=== PATIENT | female | born 1990 | race Caucasian/White ===

== ENCOUNTER 2017-08-29 07:15 | Emergency (ER) | payer OTHER ==
[~2017-08-29] VITALS: Ht 172.7 cm; Wt 96.7 kg
[2017-08-29 08:50] LABS: HEMATOCRIT 40.7 % (36.0-46.0); HEMOGLOBIN 14.3 G/DL (11.9-15.5); MCH 31.4 PG (29.0-34.0); MCHC 35.1 G/DL (30.0-36.0); MCV 89.3 FL (83-99); PLATELET COUNT 232 K/uL (156-360); RBC DIS.WIDTH-CV 11.8 % (11.8-14.6); RBC DIS.WIDTH-SD 38.4 % (39-53); RED BLOOD COUNT 4.56 M/uL (3.80-5.20); WHITE BLOOD COUNT 14.1 K/uL (4.1-10.2)
[2017-08-29 08:59] LABS: ALBUMIN 4.7 g/dL (3.2-4.8); CHLORIDE 107 mEq/L (99-109); POTASSIUM 3.6 mEq/L (3.7-5.4); SODIUM 143 mEq/L (136-147)
[2017-08-29 09:02] LABS: GLUCOSE 107 mg/dL (70-99); TOTAL PROTEIN 7.6 g/dL (6.4-8.3)
[2017-08-29 09:04] LABS: TOTAL BILIRUBIN 0.7 mg/dL (0.0-1.0)
[2017-08-29 09:05] LABS: ALKALINE PHOSPHATASE 73 IU/L (3-129); CREATININE 0.7 mg/dL (0.6-1.3); GFR ESTIMATE (CALCULATED) > 59 mL/min/
[2017-08-29 09:06] LABS: UREA NITROGEN (BUN) 9 mg/dL (9-23)
[2017-08-29 09:07] LABS: AST (GOT) 17 IU/L (2-34)
[2017-08-29 09:08] LABS: ALT (GPT) 15 IU/L (3-49)
[2017-08-29 09:16] LABS: QUANTITATIVE HCG < 4.0 MIU/ML
[2017-08-29] MEDS ORDERED: AUGMENTIN875 MG PO (11:53)
[2017-08-29] MEDS ORDERED: LORTAB 5-325 M1 EACH PO (11:53)
[2017-08-29 12:09] VITALS: BP 107/77
== END 2017-08-29 12:16 | disposition home or self-care (01) ==
LOC: EME 07:15
PROVIDERS: Nurse Practitioner Family
PROC: 0D9QXZZ Drainage of Anus, External Approach (ICD-10-PCS; principal; 2017-08-29)
DX: K61.1 Rectal abscess (principal); F41.9 Anxiety disorder, unspecified; R00.0 Tachycardia, unspecified; K64.4 Residual hemorrhoidal skin tags
CPT/HCPCS: 74177; 80053; 84702; 85027; 87040; 99281; 99285; J0595

== ENCOUNTER 2017-09-04 08:42 | Day surgery (SDC) | payer OTHER ==
[~2017-09-04] VITALS: Ht 172.7 cm; Wt 95.0 kg
[~2017-09-04 08:42] MED LIST: AUGMENTIN875 MG PO; LORTAB 5-325 M1 EACH PO
[2017-09-04] MEDS ORDERED: MOTRIN IB200 MG PO (09:09)
[2017-09-04 09:29] VITALS: BP 138/80
[2017-09-04] MEDS ORDERED: PERCOCET 5/31 TABLET PO (12:25)
[2017-09-04 13:21] VITALS: BP 111/68
[2017-09-04 14:21] VITALS: BP 114/67
[2017-09-04 14:48] VITALS: BP 108/72
== END 2017-09-04 15:05 | disposition home or self-care (01) ==
LOC: SDC 08:42
PROVIDERS: Surgery
DX: K61.0 Anal abscess (principal)
CPT/HCPCS: 81025; J0131; J0690; J2250; J3010; S0020